=== PATIENT | female | born 1950 | race Caucasian/White ===

== ENCOUNTER → 2016-10-23 16:51 | Outpatient (CLI) | payer MEDICARE, MEDICAID ==
[2014-02-11 10:35] VITALS: BMI 35.1
[~2016-10-23 16:51] MED LIST: ASCORBIC ACID500 MG PO; ASPIRIN 81 MG E81 MG PO; BIOTIN5 MG PO; BUSPAR10 MG PO; CALCIUM CITRATE1 TAB; EFFEXOR XR150 MG; EFFEXOR XR150 MG PO; ENBREL50 MG/ML SQ; FISH OIL 1,0001 CA1 PO; FOLATE0.4 MG PO; GARLIC1 CAP PO; GLUCOSAMINE & C1 CAP PO; HYDROCODON-ACE1 EAC3 PO; KLONOPIN1 MG PO; MAGNESIUM OXID250 M1 PO; METHOTREXATE2.5 MG PO; MOBIC7.5 MG PO; OMEGA-3100 MG PO; PRAVACHOL20 MG PO; SEROQUEL100 MG PO; SPIRIVA18 MCG INH; STERAPRED DS 1210 MG PO; TIROSINT112 MCG; TUMS500 MG PO; VITAMIN B-1000 MCG/M IM; ZANAFLEX4 MG PO
== END | disposition home or self-care (01) ==
LOC: D.RAD 16:51
DX: R05 Cough (principal); R06.2 Wheezing

== ENCOUNTER 2017-05-29 17:51 | Day surgery (SDC) | payer MEDICARE, MEDICAID ==
[2017-05-29 23:01] LABS: BASOPHILS 0.6 % (0-2); HEMATOCRIT 36.3 % (36.0-48.0); IMMATURE GRANULOCYTES 0.1 % (0-5); LYMPHOCYTES 32.5 % (15-50); MCH 30.9 pg (26.0-34.0); MCHC 33.1 g/dL (31.0-37.0); MCV 93.6 fL (80.0-100.0); MEAN PLATELET VOLUME 10.6 fL (7.4-10.4); MONOCYTES 7.5 % (2-11); NEUTROPHILS 56.3 % (40-80); PLATELET COUNT 221 10x3/uL (130-400); RBC 3.88 10x6/uL (4.00-5.40); RDW 15.4 % (11.5-14.5); WBC 6.8 10x3/uL (4.8-10.8)
[2017-05-29 23:06] LABS: APTT 30.6 SECONDS (22.8-39.4); INR 0.94 (0.85-1.17); PROTIME 12.4 SECONDS (11.6-15.0)
[2017-05-29 23:11] LABS: ALBUMIN 3.4 g/dL (3.4-5.0); ANION GAP 11.5 mmol/L (8-16); BILIRUBIN - TOTAL 0.4 mg/dL (0.2-1.3); CALCIUM 9.8 mg/dL (8.5-10.1); CREATININE - SERUM 0.9 mg/dL (0.6-1.3); POTASSIUM - SERUM 3.5 mmol/L (3.5-5.1); PROTEIN - SERUM 6.5 g/dL (6.4-8.2)
[2017-05-30 06:23] VITALS: BP 152/83
--- NOTE | 2017-05-30 07:15 | NUR ---
REPORT RECEIVED. PT RESTING QUIELTY. REQUSTED KLEENEX, GIVEN. PT IS ALERT AND ORIENTED X4, ASSESSMENT PERFORMED. PT DENIES FURTHER NEEDS. WILL CTM.
[2017-05-30 08:35] VITALS: BP 147/87
--- NOTE | 2017-05-30 11:50 | NUR ---
PT IS ABLE TO TOLERATE SWALLOWING WATER EASILY. NO CHOKING OR DIFFICULTY SWALLOWING NOTED. SPOKE TO DR. HOLLINGSWORTH ABOUT PT CONDTION. GAVE VERBAL ORDER TO RESTART HYDROCODONE AND START MECHANICAL SOFT DIET. IF PT TOLERATED THE DIET, DR. HOLLINGSWORTH GAVE ORDER FOR D/C. WILL GIVE PAIN MED AND CTM.
[2017-05-30 12:40] VITALS: BP 136/94
[2017-05-30] MEDS ORDERED: PROTONIX40 MG PO (14:07)
[2017-05-30 14:10] VITALS: BMI 24.9
--- NOTE | 2017-05-30 14:17 | NUR ---
PER PATIENT REQUEST, PROTONIX 40 MG #30 TAKE ONE DAILY, CALLED TO [facility], SPOKE WITH SUMMER.
--- NOTE | 2017-05-30 14:40 | NUR ---
PT D/C. REMOVED IV CATHETER WITH CATHETER TIP INTACT. D/C INSTRUCTIONS PROVIDED, PT VERBALIZED UNDERSTANDING. PAPER WORK SIGNED. FRIEND IN ROOM AT TIME OF D/C TEACHING. PT DENIES FURTHER NEEDS AT THIS TIME. WILL BE LEAVING VIA WHEELCHAIR AND GOING HOME WITH CAREGIVER.
== END 2017-05-30 15:24 | disposition home or self-care (01) ==
LOC: OBSVTIME → D.ER 17:51 → D.OPS 17:51 → EDSTATUS 19:01 → OBSVTIME 23:49 → D.M2 23:49 → D.ER 23:49 → D.M2 23:49 → D.OPS 05-30 15:24
PROVIDERS: Physician Assistant Medical
DX: T18.128A Food in esophagus causing other injury, initial encounter (principal); K22.10 Ulcer of esophagus without bleeding; K22.2 Esophageal obstruction; Z01.812 Encounter for preprocedural laboratory examination; X58.XXXA Exposure to other specified factors, initial encounter

== ENCOUNTER 2017-06-07 11:19 | Day surgery (SDC) | payer MEDICARE, MEDICAID ==
[~2017-06-07 11:19] MED LIST changes: +PROTONIX40 MG PO
[2017-06-07] MEDS ORDERED: ELAVIL25 MG PO (12:46)
[2017-06-07] MEDS ORDERED: SINEMET 25-1001 EACH PO (12:46)
[2017-06-07] MEDS ORDERED: NORVASC5 MG PO (12:47)
[2017-06-07] MEDS ORDERED: ALBUTEROL2.5 MG/3 M INH (12:47)
[2017-06-07] MEDS ORDERED: BUMETANIDE0.5 MG PO (12:48)
[2017-06-07] MEDS ORDERED: CATAPRES0.1 MG PO (12:49)
[2017-06-07] MEDS ORDERED: COLACE100 MG PO (12:49)
[2017-06-07] MEDS ORDERED: MULTIPLE VITAMI1 TA1 PO (12:49)
[2017-06-07] MEDS ORDERED: NEURONTIN 300300 MG PO (12:50)
[2017-06-07] MEDS ORDERED: FORTEO PEN20 MCG SQ (12:50)
[2017-06-07] MEDS ORDERED: LEXAPRO10 MG PO (12:50)
[2017-06-07] MEDS ORDERED: LISINOPRIL5 MG PO (12:51)
[2017-06-07] MEDS ORDERED: NORITATE60 GM TP (12:51)
[2017-06-07] MEDS ORDERED: MILK OF MAGNESI30 ML PO (12:52)
[2017-06-07] MEDS ORDERED: NYSTATIN15 GM TOPICAL (12:52)
[2017-06-07] MEDS ORDERED: PROTONIX40 MG PO (12:52)
[2017-06-07] MEDS ORDERED: POTASSIUM CHLO10 ME1 PO (12:53)
[2017-06-07] MEDS ORDERED: XARELTO20 MG PO (12:54)
[2017-06-07] MEDS ORDERED: PROCTOFOAM-HC F10 G1 RC (12:54)
[2017-06-07 13:07] VITALS: BP 86/54; BMI 25.6
[2017-06-07 13:47] LABS: HEMATOCRIT 35.8 % (36.0-48.0); MCH 31.4 pg (26.0-34.0); MCHC 33.5 g/dL (31.0-37.0); MCV 93.7 fL (80.0-100.0); MEAN PLATELET VOLUME 11.2 fL (7.4-10.4); RBC 3.82 10x6/uL (4.00-5.40); RDW 15.9 % (11.5-14.5); WBC 13.1 10x3/uL (4.8-10.8)
--- NOTE | 2017-06-07 14:07 | NUR ---
1405 TO ROOM LEFT ARM REDDENNED AND WARM TO TOUCH. PATIENT STATED IT JUST GOT LIKE TAHAT. WBC 13.1 DR. KAY AWARE OF THIS AND LEFT ARM ELEVATED.
--- NOTE | 2017-06-07 14:26 | NUR ---
DILATED 2 RINGS 60.
--- NOTE | 2017-06-07 15:54 | NUR ---
1525 DISCHARGE INSTRUCTIONS GIVEN. PIV SALINE LOCKED PER DR. KAY. PT ESCORTED TO ER PER DR. KAY'S ORDER.
--- NOTE | 2017-06-08 17:34 | OP ---
PATIENT NAME: LISS VALENTINE MEDICAL RECORD: [id number] :51 LOCATION:[facility] ADMISSION DATE: SURGEON: GENARO KAY MD DATE OF OPERATION: 06/07/2017 PROCEDURE: EGD with esophageal balloon dilatation REFERRING PHYSICIAN: Aníbal Kaminski MD INDICATIONS: Ms. Valentine is a very pleasant 66-year-old woman with history of COPD and esophageal ring. She had an esophageal food bolus on 05/29/[address] Colbert performed EGD with successful clearing of the food bolus from the esophagus and also noted erosive esophagitis changes and esophageal ring in the proximal esophagus and gastric anatomy was consistent with history of gastric bypass. She presents for followup EGD with esophageal balloon dilatation PREMEDICATIONS: Total IV anesthesia (COPD) propofol 200 mg. INSTRUMENT: Olympus video gastroscope and esophageal balloon dilator. PROCEDURE AND FINDINGS: After receiving informed consent, Ms. Valentine's posterior pharynx was anesthetized with Cetacaine spray. She was placed in left lateral decubitus position and sedated as per anesthesia. After achieving an adequate level of sedation, gastroscope was introduced per orally and advanced to the gastric pouch without difficulty. Within the esophagus was a nonobstructive ring at approximately 20 cm and also noted was a GE junction ring, which was also nonobstructive. Gastric pouch was notable for mild erythema near the anastomosis, but no signs of ulcers or bleeding. The anastomosis was wide open with the jejunum and the visualized jejunum mucosa was without erythema or ulcers. The gastroscope was then withdrawn to the stomach and esophageal balloon dilator was then positioned midway across the distal esophagus, insufflated to a 60-Armenian size, held in place on the appropriate PSI for 60 seconds, and deflated with good results. Then, the gastroscope was withdrawn to the more proximal esophagus and another balloon was positioned midway across the ring at 20 cm and then the balloon was insufflated to a 60-Armenian size, held in place on the appropriate PSI for 15 seconds, and deflated with good results. The balloon and gastroscope were then withdrawn. Ms. Valentine tolerated the procedure well, no immediate complications. ASSESSMENT: 1. Two esophageal rings, status post dilatation, one in the proximal esophagus and other at the gastroesophageal junction. 2. Mild gastritis involving the gastric pouch. 3. History of gastric bypass. RECOMMENDATIONS: 1. Soft diet today. 2. Continue Protonix 40 mg daily. 3. Resume Xarelto tomorrow. TRANSINT:[id number] Voice Confirmation ID: [id number] DOCUMENT ID: [id number] OPERATIVE REPORT [id number] LISS VALENTINE TERRI MD at 1734 CC: ANÍBAL KAMINSKI MD [id number] DICTATION DATE: 06/07/17 1446 CONTINUOUS DRIER HELPER: 06/07/17 1625 [facility] 06/07/[address] [id number]
== END 2017-06-07 15:25 | disposition home or self-care (01) ==
LOC: D.OPS 11:19
PROVIDERS: Internal Medicine Gastroenterology
DX: R13.10 Dysphagia, unspecified (principal); K29.70 Gastritis, unspecified, without bleeding; F17.200 Nicotine dependence, unspecified, uncomplicated; I10 Essential (primary) hypertension; E03.9 Hypothyroidism, unspecified; J43.9 Emphysema, unspecified; Z01.812 Encounter for preprocedural laboratory examination; Z98.890 Other specified postprocedural states

== ENCOUNTER 2017-06-07 15:42 | Emergency (ER) | payer MEDICARE, MEDICAID ==
[2017-06-07 13:07] VITALS: BMI 25.6
[~2017-06-07 15:42] MED LIST changes: +ALBUTEROL2.5 MG/3 M INH; +BUMETANIDE0.5 MG PO; +CATAPRES0.1 MG PO; +COLACE100 MG PO; +ELAVIL25 MG PO; +FORTEO PEN20 MCG SQ; +LEXAPRO10 MG PO; +LISINOPRIL5 MG PO; +MILK OF MAGNESI30 ML PO; +MULTIPLE VITAMI1 TA1 PO; +NEURONTIN 300300 MG PO; +NORITATE60 GM TP; +NORVASC5 MG PO; +NYSTATIN15 GM TOPICAL; +POTASSIUM CHLO10 ME1 PO; +PROCTOFOAM-HC F10 G1 RC; +SINEMET 25-1001 EACH PO; +XARELTO20 MG PO
[2017-06-07 16:45] LABS: BASOPHILS 0.2 % (0-2); EOSINOPHILS 0.1 % (0-7); HEMATOCRIT 34.4 % (36.0-48.0); HEMOGLOBIN 11.4 g/dL (12-16); IMMATURE GRANULOCYTES 0.2 % (0-5); LYMPHOCYTES 7.1 % (15-50); MCHC 33.1 g/dL (31.0-37.0); MCV 93.5 fL (80.0-100.0); MEAN PLATELET VOLUME 9.8 fL (7.4-10.4); MONOCYTES 3.6 % (2-11); NEUTROPHILS 88.8 % (40-80); PLATELET COUNT 178 10x3/uL (130-400); RBC 3.68 10x6/uL (4.00-5.40); RDW 15.9 % (11.5-14.5); WBC 10.6 10x3/uL (4.8-10.8)
[2017-06-07 16:53] LABS: INR 0.99 (0.85-1.17); PROTIME 12.9 SECONDS (11.6-15.0)
[2017-06-07 16:58] LABS: ANION GAP 11.7 mmol/L (8-16); BILIRUBIN - TOTAL 0.21 mg/dL (0.2-1.3); CALCIUM 8.7 mg/dL (8.5-10.1); CREATININE - SERUM 0.9 mg/dL (0.6-1.3); PROTEIN - SERUM 6.2 g/dL (6.4-8.2); URIC ACID 4.4 mg/dL (2.6-7.2)
[2017-06-07 17:01] LABS: POTASSIUM - SERUM 3.7 mmol/L (3.5-5.1)
== END 2017-06-07 17:55 | disposition home or self-care (01) ==
LOC: D.ER 15:42
PROVIDERS: Nurse Practitioner Family
DX: M25.422 Effusion, left elbow (principal); T84.84XA Pain due to internal orthopedic prosthetic devices, implants and grafts, initial encounter; M25.522 Pain in left elbow; I10 Essential (primary) hypertension; M06.9 Rheumatoid arthritis, unspecified

== ENCOUNTER → 2017-07-16 12:28 | Outpatient (CLI) | payer MEDICARE, MEDICAID ==
[2017-07-16 14:25] LABS: BASOPHILS 1.4 % (0-2); EOSINOPHILS 6.4 % (0-7); HEMATOCRIT 35.7 % (36.0-48.0); IMMATURE GRANULOCYTES 0.4 % (0-5); MCH 30.3 pg (26.0-34.0); MCHC 30.8 g/dL (31.0-37.0); MCV 98.3 fL (80.0-100.0); MEAN PLATELET VOLUME 11.4 fL (7.4-10.4); MONOCYTES 8.8 % (2-11); RBC 3.63 10x6/uL (4.00-5.40); RDW 16.2 % (11.5-14.5); WBC 8.1 10x3/uL (4.8-10.8)
[2017-07-16 14:26] LABS: PLATELET COUNT 259 10x3/uL (130-400)
[2017-07-16 14:54] LABS: ANION GAP 13.9 mmol/L (8-16); CALCIUM 8.6 mg/dL (8.5-10.1); CARBON DIOXIDE 27.3 mmol/L (21.0-32.0); CREATININE - SERUM 1.1 mg/dL (0.6-1.3); POTASSIUM - SERUM 4.2 mmol/L (3.5-5.1); VANCOMYCIN - TROUGH 12.2 ug/mL (10.0-20.0)
== END | disposition home or self-care (01) ==
LOC: D.LABREF 12:28
DX: L03.114 Cellulitis of left upper limb (principal)

== ENCOUNTER → 2017-07-24 13:39 | Outpatient (CLI) | payer MEDICARE, MEDICAID ==
[2017-07-24 14:02] LABS: BASOPHILS 1.2 % (0-2); EOSINOPHILS 2.7 % (0-7); HEMATOCRIT 33.8 % (36.0-48.0); HEMOGLOBIN 10.8 g/dL (12-16); IMMATURE GRANULOCYTES 0.2 % (0-5); LYMPHOCYTES 12.7 % (15-50); MCH 30.7 pg (26.0-34.0); MEAN PLATELET VOLUME 11.1 fL (7.4-10.4); MONOCYTES 3.1 % (2-11); NEUTROPHILS 80.1 % (40-80); PLATELET COUNT 263 10x3/uL (130-400); RBC 3.52 10x6/uL (4.00-5.40); RDW 16.5 % (11.5-14.5); WBC 5.9 10x3/uL (4.8-10.8)
[2017-07-24 14:19] LABS: ANION GAP 9.5 mmol/L (8-16); CALCIUM 9.5 mg/dL (8.5-10.1); CARBON DIOXIDE 32.6 mmol/L (21.0-32.0); CREATININE - SERUM 0.9 mg/dL (0.6-1.3); POTASSIUM - SERUM 4.1 mmol/L (3.5-5.1); VANCOMYCIN - TROUGH 17.1 ug/mL (10.0-20.0)
== END | disposition home or self-care (01) ==
LOC: D.LABREF 13:39
PROVIDERS: Internal Medicine
DX: T84.59XA Infection and inflammatory reaction due to other internal joint prosthesis, initial encounter (principal)

== ENCOUNTER → 2017-07-31 15:53 | Outpatient (CLI) | payer MEDICARE, MEDICAID ==
[2017-07-31 16:43] LABS: BASOPHILS 0.6 % (0-2); EOSINOPHILS 5.6 % (0-7); HEMOGLOBIN 10.3 g/dL (12-16); IMMATURE GRANULOCYTES 0.3 % (0-5); MCH 30.9 pg (26.0-34.0); MCHC 32.2 g/dL (31.0-37.0); MCV 96.1 fL (80.0-100.0); MEAN PLATELET VOLUME 10.9 fL (7.4-10.4); MONOCYTES 8.9 % (2-11); NEUTROPHILS 61.6 % (40-80); PLATELET COUNT 310 10x3/uL (130-400); RBC 3.33 10x6/uL (4.00-5.40); RDW 16.2 % (11.5-14.5); WBC 6.8 10x3/uL (4.8-10.8)
[2017-07-31 17:01] LABS: ANION GAP 10.7 mmol/L (8-16); CALCIUM 8.6 mg/dL (8.5-10.1); CARBON DIOXIDE 33.3 mmol/L (21.0-32.0); CREATININE - SERUM 0.9 mg/dL (0.6-1.3); VANCOMYCIN - TROUGH 18.8 ug/mL (10.0-20.0)
== END | disposition home or self-care (01) ==
LOC: D.LAB 15:53
PROVIDERS: Obstetrics & Gynecology Gynecology
DX: T84.59XA Infection and inflammatory reaction due to other internal joint prosthesis, initial encounter (principal)

== ENCOUNTER → 2017-08-07 13:57 | Outpatient (CLI) | payer MEDICARE, MEDICAID | END | disposition home or self-care (01) | LOC: D.LAB 13:57 | DX: Z51.81 Encounter for therapeutic drug level monitoring (principal); Z79.2 Long term (current) use of antibiotics; T84.59XA Infection and inflammatory reaction due to other internal joint prosthesis, initial encounter ==

== ENCOUNTER → 2017-08-07 23:45 | Outpatient (CLI) | payer MEDICARE, MEDICAID ==
[2017-08-08 00:29] LABS: ANION GAP 11.6 mmol/L (8-16); BASOPHILS 0.6 % (0-2); CALCIUM 7.4 mg/dL (8.5-10.1); CARBON DIOXIDE 29.5 mmol/L (21.0-32.0); CREATININE - SERUM 0.9 mg/dL (0.6-1.3); EOSINOPHILS 5.3 % (0-7); HEMATOCRIT 33.9 % (36.0-48.0); HEMOGLOBIN 10.4 g/dL (12-16); IMMATURE GRANULOCYTES 0.3 % (0-5); LYMPHOCYTES 35.2 % (15-50); MCH 30.6 pg (26.0-34.0); MCHC 30.7 g/dL (31.0-37.0); MCV 99.7 fL (80.0-100.0); MEAN PLATELET VOLUME 11.2 fL (7.4-10.4); MONOCYTES 7.4 % (2-11); NEUTROPHILS 51.2 % (40-80); PLATELET COUNT 302 10x3/uL (130-400); POTASSIUM - SERUM 4.1 mmol/L (3.5-5.1); RDW 16.9 % (11.5-14.5); VANCOMYCIN - TROUGH 15.6 ug/mL (10.0-20.0); WBC 6.8 10x3/uL (4.8-10.8)
== END | disposition home or self-care (01) ==
LOC: D.LAB 23:45
DX: Z51.81 Encounter for therapeutic drug level monitoring (principal); Z79.2 Long term (current) use of antibiotics; T84.59XA Infection and inflammatory reaction due to other internal joint prosthesis, initial encounter

== ENCOUNTER → 2017-08-13 11:59 | Outpatient (CLI) | payer MEDICARE, MEDICAID ==
[2017-08-13 15:32] LABS: BASOPHILS 0.5 % (0-2); EOSINOPHILS 5.7 % (0-7); HEMATOCRIT 31.8 % (36.0-48.0); HEMOGLOBIN 9.8 g/dL (12-16); IMMATURE GRANULOCYTES 0.2 % (0-5); LYMPHOCYTES 18.1 % (15-50); MCHC 30.8 g/dL (31.0-37.0); MCV 97.2 fL (80.0-100.0); MEAN PLATELET VOLUME 11.6 fL (7.4-10.4); MONOCYTES 4.8 % (2-11); NEUTROPHILS 70.7 % (40-80); PLATELET COUNT 252 10x3/uL (130-400); RBC 3.27 10x6/uL (4.00-5.40); RDW 16.3 % (11.5-14.5); WBC 6.6 10x3/uL (4.8-10.8)
[2017-08-13 15:44] LABS: ANION GAP 11.3 mmol/L (8-16); CALCIUM 8.8 mg/dL (8.5-10.1); CARBON DIOXIDE 31.1 mmol/L (21.0-32.0); CREATININE - SERUM 0.9 mg/dL (0.6-1.3); POTASSIUM - SERUM 3.4 mmol/L (3.5-5.1); VANCOMYCIN - TROUGH 17.1 ug/mL (10.0-20.0)
== END | disposition home or self-care (01) ==
LOC: D.LABREF 11:59
PROVIDERS: Orthopaedic Surgery Hand Surgery
DX: T84.59XA Infection and inflammatory reaction due to other internal joint prosthesis, initial encounter (principal)

== ENCOUNTER → 2017-08-16 16:53 | Outpatient (CLI) | payer MEDICARE, MEDICAID ==
[2017-08-16 17:52] LABS: BASOPHILS 0.6 % (0-2); EOSINOPHILS 2.3 % (0-7); HEMATOCRIT 32.6 % (36.0-48.0); HEMOGLOBIN 10.1 g/dL (12-16); IMMATURE GRANULOCYTES 0.3 % (0-5); LYMPHOCYTES 11.9 % (15-50); MCH 30.4 pg (26.0-34.0); MCV 98.2 fL (80.0-100.0); MEAN PLATELET VOLUME 11.6 fL (7.4-10.4); MONOCYTES 3.2 % (2-11); NEUTROPHILS 81.7 % (40-80); PLATELET COUNT 282 10x3/uL (130-400); RBC 3.32 10x6/uL (4.00-5.40); RDW 16.3 % (11.5-14.5); WBC 9.8 10x3/uL (4.8-10.8)
[2017-08-16 18:55] LABS: ERYTHROCYTE SEDIMENTATION RATE 52 mm/hr (0-30)
== END | disposition home or self-care (01) ==
LOC: D.LAB 16:53
PROVIDERS: Orthopaedic Surgery Hand Surgery
DX: T84.59XA Infection and inflammatory reaction due to other internal joint prosthesis, initial encounter (principal)

== ENCOUNTER 2017-11-03 14:25 | Emergency (ER) | payer MEDICARE, MEDICAID ==
[2017-11-03 15:06] LABS: BASOPHILS 0.1 % (0-2); EOSINOPHILS 0.2 % (0-7); HEMOGLOBIN 9.2 g/dL (12-16); IMMATURE GRANULOCYTES 0.2 % (0-5); LYMPHOCYTES 5.5 % (15-50); MCH 26.7 pg (26.0-34.0); MCHC 30.7 g/dL (31.0-37.0); MEAN PLATELET VOLUME 10.8 fL (7.4-10.4); MONOCYTES 15.9 % (2-11); NEUTROPHILS 78.1 % (40-80); PLATELET COUNT 244 10x3/uL (130-400); RBC 3.45 10x6/uL (4.00-5.40); RDW 16.9 % (11.5-14.5); WBC 12.1 10x3/uL (4.8-10.8)
[2017-11-03 15:18] LABS: ALBUMIN 2.6 g/dL (3.4-5.0); ANION GAP 17.4 mmol/L (8-16); BILIRUBIN - TOTAL 0.49 mg/dL (0.2-1.3); CALCIUM 7.9 mg/dL (8.5-10.1); CARBON DIOXIDE 23.7 mmol/L (21.0-32.0); CREATININE - SERUM 1.7 mg/dL (0.6-1.3); POTASSIUM - SERUM 5.1 mmol/L (3.5-5.1); PROTEIN - SERUM 6.3 g/dL (6.4-8.2)
[2017-11-03 17:56] LABS: ERYTHROCYTE SEDIMENTATION RATE 40 mm/hr (0-30)
== END 2017-11-03 17:32 | disposition home or self-care (01) ==
LOC: D.ER 14:25
PROVIDERS: Family Medicine
DX: L02.414 Cutaneous abscess of left upper limb (principal); I10 Essential (primary) hypertension

== ENCOUNTER → 2019-03-17 18:06 | Outpatient (CLI) | payer MEDICARE, MEDICAID ==
[2019-03-17 18:29] LABS: BASOPHILS 0.4 % (0-2); EOSINOPHILS 0.6 % (0-7); HEMATOCRIT 33.6 % (36.0-48.0); HEMOGLOBIN 10.5 g/dL (12-16); IMMATURE GRANULOCYTES 0.2 % (0-5); LYMPHOCYTES 10.7 % (15-50); MCH 27.8 pg (26.0-34.0); MCHC 31.3 g/dL (31.0-37.0); MCV 88.9 fL (80.0-100.0); MEAN PLATELET VOLUME 10.4 fL (7.4-10.4); MONOCYTES 6.9 % (2-11); NEUTROPHILS 81.2 % (40-80); RBC 3.78 10x6/uL (4.00-5.40); RDW 18.4 % (11.5-14.5); WBC 10.1 10x3/uL (4.8-10.8)
[2019-03-17 18:35] LABS: PLATELET COUNT 393 10x3/uL (130-400)
[2019-03-17 18:41] LABS: ALBUMIN 2.7 g/dL (3.4-5.0); BILIRUBIN - INDIRECT 0.18 mg/dL (0.00-1.00); BILIRUBIN - TOTAL 0.21 mg/dL (0.2-1.3); CREATININE - SERUM 1.1 mg/dL (0.6-1.3); PROTEIN - SERUM 6.5 g/dL (6.4-8.2)
[2019-03-17 18:42] LABS: BILIRUBIN - DIRECT 0.03 mg/dL (0.00-0.30)
== END | disposition home or self-care (01) ==
LOC: D.LABREF 18:06
PROVIDERS: ATTEND Family Medicine
DX: L03.114 Cellulitis of left upper limb (principal); I11.0 Hypertensive heart disease with heart failure; B95.62 Methicillin resistant Staphylococcus aureus infection as the cause of diseases classified elsewhere

== ENCOUNTER → 2019-04-08 12:44 | Outpatient (CLI) | payer MEDICARE, MEDICAID | END | disposition home or self-care (01) | LOC: D.RAD 12:44 | PROVIDERS: ATTEND Legal Medicine | DX: M25.562 Pain in left knee (principal); M25.561 Pain in right knee ==

== ENCOUNTER → 2019-05-08 13:05 | Outpatient (CLI) | payer MEDICARE, MEDICAID ==
[2019-05-08 14:15] LABS: BASOPHILS 0.7 % (0-2); EOSINOPHILS 4.1 % (0-7); HEMATOCRIT 30.3 % (36.0-48.0); HEMOGLOBIN 9.5 g/dL (12-16); LYMPHOCYTES 21.3 % (15-50); MCH 27.7 pg (26.0-34.0); MCHC 31.4 g/dL (31.0-37.0); MCV 88.3 fL (80.0-100.0); MEAN PLATELET VOLUME 10.9 fL (7.4-10.4); MONOCYTES 13.7 % (2-11); NEUTROPHILS 60.2 % (40-80); RBC 3.43 10x6/uL (4.00-5.40); RDW 15.3 % (11.5-14.5); WBC 6.1 10x3/uL (4.8-10.8)
[2019-05-08 14:18] LABS: PLATELET COUNT 304 10x3/uL (130-400)
[2019-05-08 14:41] LABS: CREATININE - SERUM 0.7 mg/dL (0.6-1.3); VANCOMYCIN - TROUGH 14.4 ug/mL (10.0-20.0)
== END | disposition home or self-care (01) ==
LOC: D.LABREF 13:05
PROVIDERS: ATTEND Family Medicine
DX: M86.32 Chronic multifocal osteomyelitis, humerus (principal)